=== PATIENT | male | born 1990 | race Caucasian/White ===

== ENCOUNTER 2016-07-08 11:48 | Emergency (ER) | payer BC, OTHER ==
[~2016-07-08] VITALS: Ht 182.9 cm; Wt 109.0 kg
[2016-07-08 12:01] VITALS: TEMP 37; Ht 182.9 cm; Wt 109.0 kg
[2016-07-08 14:25] LABS: BASO % 0.4 %; BASO ABS # 0.05 K/uL (0-0.2); COMPLETE YES; EOS % 2.1 %; HEMATOCRIT 45.1 % (42-52); IG% 0.2 %; LYMPH % 15.7 %; LYMPH ABS # 1.77 K/uL (1.2-3.4); MEAN CORPUSCULAR HEMOGLOBIN 30.8 pg (25-34); MEAN CORPUSCULAR HGB CONC 34.6 g/dl (32-36); MEAN PLATELET VOLUME 9.4 fL (7.4-10.4); MONO % 5.9 %; NEUT % 75.7 %; PLATELET COUNT 243 K/uL (130-400); RED BLOOD COUNT 5.07 M/uL (4.7-6.1); WHITE BLOOD COUNT 11.27 K/uL (4.8-10.8)
--- NOTE | 2016-07-08 14:31 | DIAGNOSTIC IMAGING REPORT ---
CT HEAD WITHOUT CONTRAST (CT) CLINICAL HISTORY: Change in neurological status with right-sided body numbness COMPARISON STUDY: No previous studies for comparison. TECHNIQUE: Axial CT of the brain is performed from the vertex to the skull base. IV contrast was not administered for this examination. CT DOSE: 537.48 mGy.cm FINDINGS: There is no midline shift. There is no acute hemorrhage. There are no calvarial fractures present. There is a subtle hypodensity involving the left medial frontal lobe. An MRI is recommended in follow-up. There is a small hypodensity within the right posterior subcortical right parietal lobe There is no evidence of pathologic ventricular dilatation. There is no evidence of acute sinusitis IMPRESSION: Subtle cortical hypodensity involving the left medial frontal lobe. An MRI without and with contrast is recommended in follow-up. Electronically signed by: Faizan Sanford M.D. 07/08/2016 2:29 PM
[2016-07-08 14:43] LABS: URINE APPEARANCE CLEAR (CLEAR); URINE BILIRUBIN NEG (NEG); URINE COLOR YELLOW; URINE NITRITE NEG (NEG); URINE PH 6.5 (4.5-7.5); URINE SPECIFIC GRAVITY 1.021 (1.000-1.030); UROBILINOGEN NEG (NEG)
[2016-07-08 14:47] LABS: CALCIUM 9.2 mg/dl (8.5-10.1); POTASSIUM 3.8 mmol/L (3.5-5.1)
[2016-07-08 14:50] LABS: MANUAL MICROSCOPIC REQUIRED? NO; REVIEW REQ? NO
[2016-07-08 15:01] LABS: BUN/CREATININE RATIO 11.1 (10-20); CALCIUM 9.3 mg/dl (8.5-10.1); CREATININE 1.1 mg/dl (0.60-1.40); MAGNESIUM 2.1 mg/dl (1.8-2.4); POTASSIUM 3.8 mmol/L (3.5-5.1)
[2016-07-08 15:13] LABS: C-REACTIVE PROTEIN 0.44 mg/dl (0-0.29); THYROID STIMULATING HORMONE 1.23 uIu/ml (0.300-4.500)
[2016-07-08 15:18] LABS: ALB/GLOB RATIO 1.2 (0.9-2)
[2016-07-08 15:39] LABS: LYME DISEASE AB IGG NEG (NEG); LYME DISEASE AB IGM NEG (NEG)
[2016-07-08] MEDS ORDERED: DIAZEPAM INJ 5 MG/ML 2 ML CARP IV STA ×2 (15:49→16:30)
[2016-07-08] MEDS ORDERED: NURSING VERBAL MED ORDER ONE (16:45)
[2016-07-08] MEDS ORDERED: GADAVIST IV PRN (16:45)
--- NOTE | 2016-07-08 16:57 | DIAGNOSTIC IMAGING REPORT ---
MRI OF THE BRAIN WITHOUT AND WITH IV CONTRAST CLINICAL HISTORY: ABNORMAL HEAD CT change in mental status COMPARISON STUDY: CT same date TECHNIQUE: Utilizing a 1.5 Marlen magnet and dedicated coil, multiplanar, multiecho imaging of the brain was performed pre and postcontrast administration. IV administration of 8.5 mL of Gadavist contrast was uneventful. FINDINGS: 1. Small focus of slightly increased signal left frontal parasagittal region. This shows a localized degree of mass effect with slight impact upon the left anterior aspect anterior horn left lateral ventricle. There is evidence for post contrast enhancement centrally measuring 1 cm. No additional foci of enhancement are present. Coronal FLAIR images show nonenhancing focus of increased signal left anterior frontal lobe. Several small foci of increased signal are identified in several hemispheres bilaterally. These primarily are subcortical in location. There is a small focus of increased signal left central nehemias. Foci of small increase in signal are identified in the optic radiations bilaterally. There is no deviation of midline structures. IMPRESSION: 1. Several foci of increased signal in the periventricular and deep white matter regions as well as the left central pontine region. 2. Larger focus of increased signal left parasagittal region left frontal lobe showing moderate central postcontrast enhancement measuring 1 cm. 3. Given patient's age and symptoms, this appearance is highly suggestive of a demyelinating disorder and/or multiple sclerosis, with the left parasagittal enhancing focus most likely an active focus of demyelination. 4. Other etiologies are considerably less likely Electronically signed by: Michael Ya M.D. 07/08/2016 4:56 PM
--- NOTE | 2016-07-08 17:39 | EMERGENCY ROOM VISIT NOTE ---
History First contact with patient: 12:49 Chief Complaint: NEURO SYMPTOMS Stated Complaint: NUMBNESS ON RIGHT SIDE OF BODY Nursing Triage Summary: Triage note: pt ambulatory to triage. pt reports "basically everything on the right side of my body has been numb since wednesday morning." pt states "this happend before and it took about a week for it to go away." History of Present Illness Patient is otherwise healthy 25-year-old white male who presents to the emergency department accompanied by his fiance and mother for evaluation of neurologic symptoms 4 days. He states his symptoms started when he woke up on Wednesday. He describes feeling "numbness and tingling" in the entire right side of his body. When asked to characterize this in the little bit more detail. He states that his sensation is dulled. His hand and his toes feel cold. He states that his scalp is actually spared, it starts from the right ear, includes down into the face and neck, then the right arm, torso and leg. He denies any weakness. He did report a slight headache and feeling a little bit lightheaded and nauseous on the day of the onset of his symptoms, but otherwise those have resolved. He denies any vomiting, no vision changes. No difficulty swallowing or chewing, no difficulty breathing. No neck pain, no posterior neck stiffness. No fever, chills or recent upper respiratory illness. No head injuries or trauma to the neck. He denies any low back pain. He denies any bowel or bladder incontinence. He has not received any vaccinations recently and is not on any medications. He denies any rashes, insect or tick bites. He has done nothing for his symptoms. He does report that he had a similar episode about 7 or 8 years ago, when his "whole body was numb." It resolved after about a week. He did not seek medical attention at that time had she did not have insurance. Review of Systems Review of systems as per HPI. All other systems reviewed were negative. 10 systems reviewed. Past Medical/Surgical History Medical Problems: (1) No Known Active Medical Problems Electronic medical records are reviewed and summarized as above/below. See Problem List. Social History Smoking Status: Never Smoker Smokeless Tobacco Use: Yes Alcohol Use: occasionally Marital Status: in relationship Housing Status: lives with family Occupation Status: employed Current/Historical Medications No Active Prescriptions or Reported Meds Allergies Uncoded Allergies: NKA (Allergy, Unknown, 08/17/02) Physical Exam Vital Signs Date Time Temp Pulse Resp B/P Pulse Ox O2 Delivery O2 Flow Rate FiO2 07/08/16 17:45 80 20 145/75 98 Room Air 07/08/16 15:49 71 18 143/89 98 Room Air 07/08/16 14:00 74 16 144/89 100 Room Air 07/08/16 12:01 37.0 80 18 149/102 98 Room Air Physical Exam CONSTITUTIONAL: Patient is a pleasant, well-appearing 25-year-old female who is awake and alert and laying semiupright on the gurney in no acute distress. Family members at the bedside. EYES: Pupils equal, round, reactive to light and accommodation. EOMs intact without nystagmus. Sclera are anicteric. ENT: Tympanic membranes intact, with normal landmarks. External canals are clear. Oral and nasopharynx are clear. Mucous membranes are moist, no lesions , tongue and gums appear normal. NECK: No bruits auscultated. Supple without lymphadenopathy. No thyromegaly. No meningeal signs. Full active range of motion without discomfort. CARDIOVASCULAR: Regular rate and rhythm, with normal S1 and S2, no murmur or gallop or rub is heard. No carotid bruits auscultated. No JVD. Peripheral pulses easy to palpable. RESPIRATORY: Breath sounds equal and clear to auscultation without wheezes, rales, or rhonchi heard. Full and equal chest expansion without accessory muscle use or retractions. GI: Bowel sounds are present. Abdomen is soft, nontender, nondistended. No organomegaly. No pulsatile masses. No guarding or rebound. MUSCULOSKELETAL: Full range of motion of extremities x 4 with good strength. No cyanosis, edema, joint tenderness or swelling. No deformity. INTEGUMENTARY: No lesions or rash, normal skin turgor. NEUROLOGICAL: Alert, oriented, and cooperative. Speech is clear and fluent with appropriate repetition, comprehensive and naming. Mini-Mental status exam is unremarkable. Cranial nerves 2 through 12 are grossly intact. Normal gait. Negative Romberg and pronator drift. Patient is able to toe, heel and tandem walk without difficulty. Finger to nose testing is within normal limits. Reflexes are 2+ and symmetrical in the biceps, triceps, brachial radialis, knees and ankles. Babinski's is downgoing. Sensation to light touch, pinprick and position sense are intact over the arms, torso and legs. Rapid alternating movements are intact. Strength is full bilaterally. LYMPH: No lymphadenopathy. Medical Decision & Procedures ER Provider Diagnostic Interpretation: CT HEAD WITHOUT CONTRAST (CT) CLINICAL HISTORY: Change in neurological status with right-sided body numbness COMPARISON STUDY: No previous studies for comparison. TECHNIQUE: Axial CT of the brain is performed from the vertex to the skull base. IV contrast was not administered for this examination. CT DOSE: 537.48 mGy.cm FINDINGS: There is no midline shift. There is no acute hemorrhage. There are no calvarial fractures present. There is a subtle hypodensity involving the left medial frontal lobe. An MRI is recommended in follow-up. There is a small hypodensity within the right posterior subcortical right parietal lobe There is no evidence of pathologic ventricular dilatation. There is no evidence of acute sinusitis IMPRESSION: Subtle cortical hypodensity involving the left medial frontal lobe. An MRI without and with contrast is recommended in follow-up. MRI OF THE BRAIN WITHOUT AND WITH IV CONTRAST CLINICAL HISTORY: ABNORMAL HEAD CT change in mental status COMPARISON STUDY: CT same date TECHNIQUE: Utilizing a 1.5 Marlen magnet and dedicated coil, multiplanar, multiecho imaging of the brain was performed pre and postcontrast administration. IV administration of 8.5 mL of Gadavist contrast was uneventful. FINDINGS: 1. Small focus of slightly increased signal left frontal parasagittal region. This shows a localized degree of mass effect with slight impact upon the left anterior aspect anterior horn left lateral ventricle. There is evidence for post contrast enhancement centrally measuring 1 cm. No additional foci of enhancement are present. Coronal FLAIR images show nonenhancing focus of increased signal left anterior frontal lobe. Several small foci of increased signal are identified in several hemispheres bilaterally. These primarily are subcortical in location. There is a small focus of increased signal left central nehemias. Foci of small increase in signal are identified in the optic radiations bilaterally. There is no deviation of midline structures. IMPRESSION: 1. Several foci of increased signal in the periventricular and deep white matter regions as well as the left central pontine region. 2. Larger focus of increased signal left parasagittal region left frontal lobe showing moderate central postcontrast enhancement measuring 1 cm. 3. Given patient's age and symptoms, this appearance is highly suggestive of a demyelinating disorder and/or multiple sclerosis, with the left parasagittal enhancing focus most likely an active focus of demyelination. 4. Other etiologies are considerably less likely Laboratory Results 07/08/16 14:05 Red Blood Count 5.07, Mean Corpuscular Volume 89.0, Mean Corpuscular Hemoglobin 30.8, Mean Corpuscular Hemoglobin Concent 34.6, Mean Platelet Volume 9.4, Neutrophils (%) (Auto) 75.7, Lymphocytes (%) (Auto) 15.7, Monocytes (%) (Auto) 5.9, Eosinophils (%) (Auto) 2.1, Basophils (%) (Auto) 0.4, Neutrophils # (Auto) 8.52, Lymphocytes # (Auto) 1.77, Monocytes # (Auto) 0.67, Eosinophils # (Auto) 0.24, Basophils # (Auto) 0.05 07/08/16 14:05 Test 07/08/16 14:05 White Blood Count 11.27 K/uL (4.8-10.8) Red Blood Count 5.07 M/uL (4.7-6.1) Hemoglobin 15.6 g/dL (14.0-18.0) Hematocrit 45.1 % (42-52) Mean Corpuscular Volume 89.0 fL (80-100) Mean Corpuscular Hemoglobin 30.8 pg (25-34) Mean Corpuscular Hemoglobin Concent 34.6 g/dl (32-36) Platelet Count 243 K/uL (130-400) Mean Platelet Volume 9.4 fL (7.4-10.4) Neutrophils (%) (Auto) 75.7 % Lymphocytes (%) (Auto) 15.7 % Monocytes (%) (Auto) 5.9 % Eosinophils (%) (Auto) 2.1 % Basophils (%) (Auto) 0.4 % Neutrophils # (Auto) 8.52 K/uL (1.4-6.5) Lymphocytes # (Auto) 1.77 K/uL (1.2-3.4) Monocytes # (Auto) 0.67 K/uL (0.11-0.59) Eosinophils # (Auto) 0.24 K/uL (0-0.5) Basophils # (Auto) 0.05 K/uL (0-0.2) RDW Standard Deviation 41.5 fL (36.4-46.3) RDW Coefficient of Variation 12.9 % (11.5-14.5) Immature Granulocyte % (Auto) 0.2 % Immature Granulocyte # (Auto) 0.02 K/uL (0.00-0.02) Erythrocyte Sedimentation Rate 12 mm/hr (0-14) Urine Color YELLOW Urine Appearance CLEAR (CLEAR) Urine pH 6.5 (4.5-7.5) Urine Specific [place] 1.021 (1.000-1.030) Urine Protein NEG (NEG) Urine Glucose (UA) NEG (NEG) Urine Ketones NEG (NEG) Urine Occult Blood NEG (NEG) Urine Nitrite NEG (NEG) Urine Bilirubin NEG (NEG) Urine Urobilinogen NEG (NEG) Urine Leukocyte Esterase NEG (NEG) Anion Gap 10.0 mmol/L (3-11) Est Creatinine Clear Calc Drug Dose 130.9 ml/min Estimated GFR () 107.6 Estimated GFR (Non- 92.8 BUN/Creatinine Ratio 11.1 (10-20) Calcium Level 9.3 mg/dl (8.5-10.1) Magnesium Level 2.1 mg/dl (1.8-2.4) Total Bilirubin 0.8 mg/dl (0.2-1) Aspartate Amino Transf (AST/SGOT) 14 U/L (15-37) Alanine Aminotransferase (ALT/SGPT) 39 U/L (12-78) Alkaline Phosphatase 72 U/L (45-117) C-Reactive Protein 0.44 mg/dl (0-0.29) Total Protein 7.8 gm/dl (6.4-8.2) Albumin 4.2 gm/dl (3.4-5.0) Globulin 3.6 gm/dl (2.5-4.0) Albumin/Globulin Ratio 1.2 (0.9-2) Thyroid Stimulating Hormone (TSH) 1.230 uIu/ml (0.300-4.500) Lyme Disease IgG Antibody NEG (NEG) Lyme Disease IgM Antibody NEG (NEG) ED Course The patient was seen and assessed as above. His old records were reviewed. IV access was obtained and laboratory studies were collected. He presents to the emergency department complaining of paresthesias in the right side of his body. He does not have any neurologic deficits on exam, nonetheless. Laboratory studies were ordered including CBC with differential, ESR, CRP, BMP, magnesium level, TSH, CMP and a Lyme screen. Due to the neurologic deficits, head CT was ordered. Laboratory studies revealed a white count of 11,200, H&H is normal. Sedimentation rate is not elevated. Electrolytes are without abnormality. CRP is minimally elevated. TSH is indicative of a euthyroid state. Urinalysis is clear. Lyme screen is negative. Head CT did demonstrate a subtle cortical hypodensity involving the left medial frontal lobe, and recommended an MRI with and without contrast for follow-up. MRI was pursued. Findings were consistent with several areas of increased signal uptake, that are concerning for a demyelinating disorder. All laboratory and diagnostic imaging studies were reviewed with attending physician. I did discuss the patient with [facility], Dr. Mathias, who will make arrangements for the patient to be seen in her office for follow- up. There were no acute intervention was necessary through the emergency department. All laboratory and diagnostic imaging studies were reviewed with the patient and his family at length. The patient was discharged home in good condition, and instructed to follow-up with Dr. Mathias as arranged. Differential diagnoses include CVA/TIA, acute intracranial bleed, mass or mass effect, malignancy, demyelinating disorder, meningitis, encephalitis, peripheral neuropathy, among others. Impression Primary Impression: Paresthesia of right upper and lower extremity Additional Impression: Demyelinating disorder Departure Information Prescriptions No Active Prescriptions or Reported Meds Referrals Liudmila Cheng D.O. (PCP) Stephanie Mathias M.D. Patient Instructions A Signature Page, My [facility] Additional Instructions [facility] neurology (Dr. Mathias et al) will contact you for a follow-up appointment. Continue current medications. Return to the ER for passing out, headaches, vision problems, fevers, vomiting, difficulty breathing or swallowing, severe pain, loss of control of your bowels or bladder, inability to walk, worsening of your condition, or as needed.
[2016-07-08 17:45] VITALS: BP 145/75; PULSE 80; O2SAT 98
[2017-03-15] MEDS ORDERED: DOXY100C76 PO (08:57)
[2017-03-15] MEDS ORDERED: PRED20TA PO (08:57)
[2017-03-15] MEDS ORDERED: ACET-1256 PO (08:58)
== END 2016-07-08 18:00 | disposition home or self-care (01) ==
LOC: C.EDB 11:50 → C.EDC 18:00
DX: R20.2 Paresthesia of skin (principal); G37.9 Demyelinating disease of central nervous system, unspecified; Z72.0 Tobacco use

== ENCOUNTER → 2016-08-10 | Outpatient (CLI) | payer BC ==
[~2016-08-10] MED LIST: ACET-1256 PO; CHOL1000 PO; CYAN10005 PO; DOXY100C76 PO; GADAVIST IV PRN; INTE1KIT5 SQ; MECL1TAB42 PO; OXYC-57 PO; PRED20TA PO
--- NOTE | 2016-08-10 10:51 | DIAGNOSTIC IMAGING REPORT ---
CERVICAL SPINE MRI WITH AND WITHOUT CONTRAST HISTORY: Demyelinating disorder DEMYELINATION TECHNIQUE: Multiplanar multisequence MRI of the cervical spine was performed both before and after the use of intravenous contrast. COMPARISON STUDY: None. FINDINGS: Signal characteristics the vertebral bodies as well as intervertebral discs are unremarkable. Signal characteristics cervical cord are unremarkable. Compromised evaluation of cord matrix due to patient motion. Focus of increased signal left central nehemias C2-C3: No significant central canal or neural foraminal narrowing. C3-C4: No significant central canal or neural foraminal narrowing. C4-C5: No significant central canal or neural foraminal narrowing. C5-C6: No significant central canal or neural foraminal narrowing. C6-C7: No significant central canal or neural foraminal narrowing. C7-T1: No significant central canal or neural foraminal narrowing. IMPRESSION: Negative study. Moderate compromise of the evaluation of the internal matrix of the cervical cord due to patient motion and [resolution. Focus of increased signal left central nehemias unchanged from the patient's prior MRI of the brain Electronically signed by: Michael Ya M.D. 08/10/2016 10:50 AM Dictated Date/Time: 08/10/2016 10:44 AM
== END | disposition home or self-care (01) ==
LOC: C.OPENMRI 08:46
PROVIDERS: ATTEND Psychiatry & Neurology Neurology
DX: G36.9 Acute disseminated demyelination, unspecified (principal)

== ENCOUNTER → 2016-10-07 | Outpatient (CLI) | payer BC ==
--- NOTE | 2016-10-07 09:11 | DIAGNOSTIC IMAGING REPORT ---
MRI OF THE BRAIN WITHOUT AND WITH IV CONTRAST CLINICAL HISTORY: Multiple sclerosis COMPARISON STUDY: 07/08/2016 TECHNIQUE: MRI of the brain was performed from the vertex to the skull base utilizing various T1 and T2 weighted sequences. Following the IV administration of 12.5 mL of Gadavist contrast, additional enhanced images were obtained. The patient was imaged under 0.7 Marlen open MRI scanner. FINDINGS: Sagittal T1, axial diffusion, proton density and T2 weighted axial, coronal FLAIR, and pre and post axial T1-weighted images were acquired. These were supplemented with post gadolinium coronal T1 weighted images. No intra or extra-axial mass lesions are visualized. Foci of increased signal on diffusion-weighted imaging, likely represents T2 shine through. There is no evidence of ventricular dilatation. Proton density T2-weighted and FLAIR images reveal multiple new white matter lesions. There is a 12 mm focus of increased signal within the central nehemias. There are foci of increased signal within the left cerebellar peduncle. There is a new focus of increased signal within the right optic radiations. There is a new 12 mm lesion within the white matter adjacent to the atrium of the right lateral ventricle. There is a new 9 mm lesion within the right internal capsule. There is a new lesion within the right frontal white matter. The previous identified left frontal white matter lesion appears smaller. There are small foci of enhancement within the nehemias. There are ring-enhancing lesions adjacent to the atrium of the right lateral ventricle and within the right frontal white matter. There is a punctate focus of enhancement adjacent to the atrium of the left lateral ventricle. The lesion within the right internal capsule enhances. There are no abnormal flow voids. IMPRESSION: 1. Changing pattern of the multiple white matter lesions. Overall there is been significant progression in the disease when compared the preceding study performed July 08, 2016. Multiple lesions demonstrate post gadolinium enhancement. The findings are most consistent with a demyelinating process such as multiple sclerosis with active enhancing plaques. Electronically signed by: Faizan Sanford M.D. 10/07/2016 9:10 AM Dictated Date/Time: 10/07/2016 9:02 AM
== END | disposition home or self-care (01) ==
LOC: C.OPENMRI 07:39
PROVIDERS: ATTEND Psychiatry & Neurology Neurology
DX: G35 Multiple sclerosis (principal)

== ENCOUNTER 2017-02-19 16:59 | Emergency (ER) | payer BC ==
[~2017-02-19] VITALS: Ht 182.9 cm; Wt 111.5 kg
[2017-02-19 17:04] VITALS: TEMP 37; Ht 182.9 cm; Wt 111.5 kg
--- NOTE | 2017-02-19 17:28 | EMERGENCY ROOM VISIT NOTE ---
History Report prepared by Adelia: Bibiana Mehta Under the Supervision of: Dr. Damián Sandy D.O. First contact with patient: 17:13 Chief Complaint: NEURO SYMPTOMS Stated Complaint: NUMBNESS IN FACE AND CAN'T WALK History of Present Illness The patient is a 26 year old male who presents to the Emergency Room with complaints of numbness on the right side of his body today. He states that he is walking with a little bit of a stagger due to the numbness. He also reports having double vision. The patient denies having a fever, nausea, and vomiting. He reports loss of appetite over the last few days. The patient reports last taking steroids 2 days ago, and that when he stopped taking the steroids, the symptoms returned. He reports that his neurologist, Dr. Campos, told him to take Tylenol and that his symptoms should go away. The patient states that he got his multiple sclerosis shot yesterday. Source of History: patient Onset: today Position: other (right side of body) Quality: numbness Associated Symptoms: No fevers, No nausea, No vomiting Note: additional symptom: double vision, walking with a stagger, loss of appetite Review of Systems See HPI for pertinent positives & negatives. A total of 10 systems reviewed and were otherwise negative. Past Medical & Surgical Medical Problems: (1) No Known Active Medical Problems Family History Diabetes mellitus Hypertension Social History Smoking Status: Never Smoker Alcohol Use: occasionally Marital Status: in relationship Housing Status: lives with family Occupation Status: employed Current/Historical Medications Scheduled Cholecalciferol (Vitamin D3), 1,000 INTER.UNIT PO DAILY Cyanocobalamin (Vitamin B-12), 1,000 MCG PO DAILY Interferon Beta-1A (Avonex Pen), 0.5 ML SQ WK Scheduled PRN Meclizine Hcl (Meclizine Hcl), 25 MG PO TID PRN for Dizziness or Vertigo Allergies Coded Allergies: No Known Allergies (Unverified , 02/19/17) Physical Exam Vital Signs Date Time Temp Pulse Resp B/P (MAP) Pulse Ox O2 Delivery O2 Flow Rate FiO2 02/19/17 18:18 82 16 133/93 96 02/19/17 17:24 83 02/19/17 17:23 Room Air 02/19/17 17:04 37.0 91 18 137/91 95 Room Air Physical Exam GENERAL: Patient is awake, alert, and in no acute distress. Patient is resting comfortably and showing no signs of anxiety EYES: The conjunctivae are clear. The pupils are round and reactive. EARS, NOSE, MOUTH AND THROAT: The nose is without any evidence of any deformity. Mucous membranes are moist tongue is midline NECK: The neck is nontender and supple. RESPIRATORY: Normal respiratory effort is noted there is no evidence of wheezing rhonchi or rales CARDIOVASCULAR: Regular rate and rhythm noted there no murmurs rubs or gallops normal S1 normal S2 GASTROINTESTINAL: The abdomen is soft. Bowel sounds are present in all quadrants. Abdomen is nontender MUSCULOSKELETAL/EXTREMITIES: There is no evidence of gross deformity full range of motion is noted in the hips and shoulders SKIN: There is no obvious evidence of any rash. There are no petechiae, pallor or cyanosis noted. NEUROLOGIC: Patient is awake alert and oriented x3, ostomy nurse strength was diminished in right upper extremity compared to left minimally. patellar reflexes are 3+ bilaterally Medical Decision & Procedures ER Provider Diagnostic Interpretation: X-ray results as stated below per interpretation by me and the radiologist. CHEST ONE VIEW PORTABLE CLINICAL HISTORY: 26 years-old Male presenting with EVALUATE ALTERED MENTAL STATUS/WEAKNESS. TECHNIQUE: Portable upright AP view of the chest was obtained. COMPARISON: None. FINDINGS: Cardiomediastinal silhouette normal. Lungs and pleural spaces clear. Osseous structures normal. Upper abdomen normal. IMPRESSION: 1. No acute cardiopulmonary disease. Electronically signed by: Cristhian Wood M.D. 02/19/2017 6:12 PM Dictated Date/Time: 02/19/2017 6:11 PM Laboratory Results 02/19/17 17:32 Red Blood Count 5.42, Mean Corpuscular Volume 89.5, Mean Corpuscular Hemoglobin 30.1, Mean Corpuscular Hemoglobin Concent 33.6, Mean Platelet Volume 9.2, Neutrophils (%) (Auto) 65.2, Lymphocytes (%) (Auto) 21.3, Monocytes (%) (Auto) 10.9, Eosinophils (%) (Auto) 1.4, Basophils (%) (Auto) 0.3, Neutrophils # (Auto ) 7.66, Lymphocytes # (Auto) 2.51, Monocytes # (Auto) 1.28, Eosinophils # (Auto ) 0.17, Basophils # (Auto) 0.03 02/19/17 17:32 Test 8/18/17 17:32 White Blood Count 11.76 K/uL (4.8-10.8) Red Blood Count 5.42 M/uL (4.7-6.1) Hemoglobin 16.3 g/dL (14.0-18.0) Hematocrit 48.5 % (42-52) Mean Corpuscular Volume 89.5 fL (80-100) Mean Corpuscular Hemoglobin 30.1 pg (25-34) Mean Corpuscular Hemoglobin Concent 33.6 g/dl (32-36) Platelet Count 275 K/uL (130-400) Mean Platelet Volume 9.2 fL (7.4-10.4) Neutrophils (%) (Auto) 65.2 % Lymphocytes (%) (Auto) 21.3 % Monocytes (%) (Auto) 10.9 % Eosinophils (%) (Auto) 1.4 % Basophils (%) (Auto) 0.3 % Neutrophils # (Auto) 7.66 K/uL (1.4-6.5) Lymphocytes # (Auto) 2.51 K/uL (1.2-3.4) Monocytes # (Auto) 1.28 K/uL (0.11-0.59) Eosinophils # (Auto) 0.17 K/uL (0-0.5) Basophils # (Auto) 0.03 K/uL (0-0.2) RDW Standard Deviation 43.1 fL (36.4-46.3) RDW Coefficient of Variation 13.2 % (11.5-14.5) Immature Granulocyte % (Auto) 0.9 % Immature Granulocyte # (Auto) 0.11 K/uL (0.00-0.02) Prothrombin Time 11.4 SECONDS (9.0-12.0) Prothromb Time International Ratio 1.1 (0.9-1.1) Activated Partial Thromboplast Time 26.3 SECONDS (21.0-31.0) Partial Thromboplastin Ratio 1.0 Anion Gap 6.0 mmol/L (3-11) Est Creatinine Clear Calc Drug Dose 147.3 ml/min Estimated GFR () 122.8 Estimated GFR (Non- 106.0 BUN/Creatinine Ratio 11.6 (10-20) Calcium Level 9.1 mg/dl (8.5-10.1) Magnesium Level 2.1 mg/dl (1.8-2.4) Total Bilirubin 1.4 mg/dl (0.2-1) Direct Bilirubin 0.3 mg/dl (0-0.2) Aspartate Amino Transf (AST/SGOT) 17 U/L (15-37) Alanine Aminotransferase (ALT/SGPT) 57 U/L (12-78) Alkaline Phosphatase 55 U/L (45-117) Total Creatine Kinase 92 U/L (39-308) Creatine Kinase MB < 0.5 ng/ml (0.5-3.6) Creatine Kinase MB Ratio (0-3.0) Troponin I < 0.015 ng/ml (0-0.045) Total Protein 7.7 gm/dl (6.4-8.2) Albumin 3.9 gm/dl (3.4-5.0) Thyroid Stimulating Hormone (TSH) 1.420 uIu/ml (0.300-4.500) Laboratory results per my review. Medications Administered Medications (Trade) Dose Ordered Sig/Andrey Route Start Time Stop Time Status Last Admin Dose Admin Pantoprazole Sodium (Protonix Tab) 40 mg NOW STAT PO 02/19/17 17:29 02/19/17 17:30 DC 02/19/17 18:13 40 MG Al Hydrox/Mg Hydrox/Simethicone (Maalox Max Susp) 30 ml NOW STAT PO 02/19/17 17:29 02/19/17 17:30 DC 02/19/17 18:13 30 ML Methylprednisolone Sodium Succinate 1000 mg/Sodium Chloride 266 ml @ 266 mls/hr TODAY@1745 IV 02/19/17 17:45 02/19/17 20:00 02/19/17 18:16 266 MLS/HR ECG Indication: weakness Rate (beats per minute): 77 Rhythm: normal sinus Findings: no ectopy, other (no acute ST segment abnormalities) ED Course 1720: The patient was evaluated in room C5. A complete history and physical examination were performed. 1729: Ordered Al Hydrox/Mg Hydrox/Simethicone 30 ml PO, Pantoprazole Sodium 40 mg PO. 1733: I spoke to Dr. Mathias of [facility], and she recommends 1 gm of Solu- Medrol for 3 days and no MRI at this time. The patient should follow up with her. 1745: Ordered Methylprednisolone Sodium Succinate 1,000 mg/Sodium Chloride 266 ml @ 266 mls/hr IV. 1748: I discussed the patient's case with Laurie Villalobos PA-C so she can order the outpatient Solu-Medrol. 190: Upon reevaluation, the patient is resting. I discussed the results and treatment plan with him. He verbalized agreement of the treatment plan. He was discharged home. Medical Decision Differential diagnosis: Etiologies such as metabolic, infection, hypo/hyperglycemia, electrolyte abnormalities, cardiac sources, intracerebral event, toxicologic, neurologic, as well as others were entertained. Nursing notes reviewed. The patient's previous electronic medical records reviewed including his most recent MRIs. The patient is a 26-year-old male who presented to the emergency department for an evaluation of right sided neurologic symptoms. The patient has a history of MS. A review of his recent MRIs that show he has a very progressive disease process. He recently stopped a course of steroids and feels that his symptoms have rebounded since then. I discussed the patient's condition with his primary neurologist. She has requested a dose of Solu-Medrol at this time and asked me to try to set up doses through the weekend and she would follow him up next week. The patient was encouraged to return for the doses of Solu-Medrol return to the emergency department immediately if symptoms change worsen or the need arises. Otherwise she was encouraged to follow-up with his primary care physician as well as primary neurologist. Medication Reconcilliation Current Medication List: was personally reviewed by me Blood Pressure Screening Patient's blood pressure: Normal blood pressure Consults Time Called: 1729 Consulting Physician: Dr. Mey Shah Neurology Returned Call: [address] Mathias of [facility], and she recommends 1 gm of Solu-Medrol for 3 days and no MRI at this time. The patient should follow up with her. Additional Consults: Time Called: 174 Consulted Physician: Laurie Villalobos PA-C Returned Call: 174 Additional Comments: I discussed the patient's case with Laurie Villalobos PA-C so she can order the outpatient Solu-Medrol. Impression Primary Impression: Multiple sclerosis exacerbation Scribe Attestation The scribe's documentation has been prepared under my direction and personally reviewed by me in its entirety. I confirm that the note above accurately reflects all work, treatment, procedures, and medical decision making performed by me. Departure Information Dispostion Home / Self-Care Referrals No Doctor, Assigned (PCP) Liudmila Cheng D.O. Schaefer, Kathleen A., M.D. Forms HOME CARE DOCUMENTATION FORM, IMPORTANT VISIT INFORMATION, WORK / SCHOOL INSTRUCTIONS Patient Instructions Multiple Sclerosis, My [facility] Additional Instructions Return to the hospital at 9 a.m. tomorrow for a re-dosage of the Solu-Medrol. Return on Wednesday as well. Call to schedule a follow-up appointment with your primary neurologist for Wednesday or Wednesday. If you cannot get an appointment by Wednesday return on Wednesday morning as well for another dose of Solu-Medrol. Rest and avoid any strenuous activity. Continue all medications as prescribed.
[2017-02-19] MEDS ORDERED: PANTOprazole SOD 40 MG TAB PO STA (17:29)
[2017-02-19] MEDS ORDERED: ALUMINUM/MAGNESIUM/SIMETH (MAALOX MAX) 30 ML UDC PO STA (17:29)
[2017-02-19] MEDS ORDERED: METHYLPREDNISOLONE 1000 MG/16 ML IV STA (17:29)
[2017-02-19] MEDS ORDERED: CYAN10005 PO (17:43)
[2017-02-19] MEDS ORDERED: MECL1TAB42 PO (17:43)
[2017-02-19] MEDS ORDERED: CHOL1000 PO (17:43)
[2017-02-19] MEDS ORDERED: INTE1KIT5 SQ (17:43)
[2017-02-19] MEDS ORDERED: METHYLPREDNISOLONE IV SCH (17:45)
[2017-02-19] MEDS ORDERED: SODIUM CHLORIDE 0.9% IV SCH (17:45)
[2017-02-19 17:55] LABS: BASO % 0.3 %; BASO ABS # 0.03 K/uL (0-0.2); COMPLETE YES; EOS % 1.4 %; HEMATOCRIT 48.5 % (42-52); IG% 0.9 %; LYMPH % 21.3 %; LYMPH ABS # 2.51 K/uL (1.2-3.4); MEAN CELL VOLUME 89.5 fL (80-100); MEAN CORPUSCULAR HEMOGLOBIN 30.1 pg (25-34); MEAN CORPUSCULAR HGB CONC 33.6 g/dl (32-36); MEAN PLATELET VOLUME 9.2 fL (7.4-10.4); MONO % 10.9 %; NEUT % 65.2 %; PLATELET COUNT 275 K/uL (130-400); RED BLOOD COUNT 5.42 M/uL (4.7-6.1); WHITE BLOOD COUNT 11.76 K/uL (4.8-10.8)
[2017-02-19 18:05] LABS: INR 1.1 (0.9-1.1); PROTHROMBIN TIME (PATIENT) 11.4 SECONDS (9.0-12.0)
--- NOTE | 2017-02-19 18:13 | DIAGNOSTIC IMAGING REPORT ---
CHEST ONE VIEW PORTABLE CLINICAL HISTORY: 26 years-old Male presenting with EVALUATE ALTERED MENTAL STATUS/WEAKNESS. TECHNIQUE: Portable upright AP view of the chest was obtained. COMPARISON: None. FINDINGS: Cardiomediastinal silhouette normal. Lungs and pleural spaces clear. Osseous structures normal. Upper abdomen normal. IMPRESSION: 1. No acute cardiopulmonary disease. Electronically signed by: Cristhian Wood M.D. 02/19/2017 6:12 PM Dictated Date/Time: 02/19/2017 6:11 PM
[2017-02-19 18:35] LABS: ALT/SGPT 57 U/L (12-78); AST/SGOT 17 U/L (15-37); BLOOD UREA NITROGEN 11 mg/dl (7-18); BUN/CREATININE RATIO 11.6 (10-20); CALCIUM 9.1 mg/dl (8.5-10.1); CARBON DIOXIDE 28 mmol/L (21-32); CHLORIDE 105 mmol/L (98-107); CREATININE 0.98 mg/dl (0.60-1.40); GLUCOSE 89 mg/dl (70-99); MAGNESIUM 2.1 mg/dl (1.8-2.4); POTASSIUM 3.4 mmol/L (3.5-5.1); SODIUM 139 mmol/L (136-145)
[2017-02-19 18:46] LABS: ALKALINE PHOSPHATASE 55 U/L (45-117)
[2017-02-19 19:35] VITALS: BP 139/83; PULSE 84; O2SAT 96
[2017-03-15] MEDS ORDERED: PRED20TA PO (08:57)
[2017-03-15] MEDS ORDERED: DOXY100C76 PO (08:57)
[2017-03-15] MEDS ORDERED: ACET-1256 PO (08:58)
== END 2017-02-19 19:35 | disposition home or self-care (01) ==
LOC: C.EDB 17:01 → C.EDC 19:35
DX: G35 Multiple sclerosis (principal); Z83.3 Family history of diabetes mellitus; Z82.49 Family history of ischemic heart disease and other diseases of the circulatory system

== ENCOUNTER → 2017-02-26 | Outpatient (CLI) | payer BC ==
[~2017-02-26] MED LIST changes: -GADAVIST IV PRN; +MAGNEVIST IV PRN
--- NOTE | 2017-02-26 13:57 | DIAGNOSTIC IMAGING REPORT ---
MRA OF THE INTRACRANIAL CIRCULATION WITHOUT CONTRAST CLINICAL HISTORY: Multiple sclerosis. Right sided numbness. COMPARISON STUDY: MRI of the brain October 07, 2016. TECHNIQUE: Utilizing a 1.5 Marlen magnet and 3-D [id number] technique, unenhanced MRA of the intracranial circulation was obtained. FINDINGS: The bilateral M1, M2, A1 and A2 segments are patent. This exam is mildly compromised by motion artifact but is diagnostic. No abrupt vessel cut off or intracranial aneurysm is identified on this examination. There is no for dissection within the major intracranial vessels. No significant stenosis is present. Posterior circulation is also intact. IMPRESSION: Unremarkable MRA of the intracranial circulation. Electronically signed by: Kenney Luke M.D. 02/26/2017 1:56 PM Dictated Date/Time: 02/26/2017 1:54 PM
--- NOTE | 2017-02-26 14:56 | DIAGNOSTIC IMAGING REPORT ---
Brain MRI WITH AND WITHOUT CONTRAST HISTORY: Multiple sclerosis. Right-sided body numbness. TECHNIQUE: Multiplanar multisequence MRI of the brain was performed both before and after the intravenous administration of contrast. COMPARISON STUDY: Brain MRI 10/07/2016. FINDINGS: No areas of restricted diffusion to suggest acute infarction. The midline structures are intact. Small retention cysts within the right maxillary sinus. The mastoid air cells are clear. The major vascular flow voids at the skull base are well-maintained. The ventricles and sulci are within normal limits. There again noted multiple scattered white matter plaques seen within the supratentorial and infratentorial brain consistent with the patient's history of multiple sclerosis. The right parietal and right basal ganglia plaques have decreased in size. There is a new 1 cm white matter plaque within the right thalamus. There are 2 new white matter plaques within the left frontal periventricular white matter with the largest measuring 8 mm. A 6 mm white matter plaque within the left parietal periventricular white matter has increased in size. Large white matter plaque within the nehemias is also slightly increased in size. This measures 1.6 cm, previously measuring 1.2 cm. No hematoma or midline shift. No abnormal enhancement this time. IMPRESSION: Overall, mixed findings compared to the prior study. The right parietal periventricular white matter plaques have improved. However, there has been increase in size within the large pontine and small left parietal white matter plaques. There are few new white matter plaques within the right thalamus and left frontal lobe. No abnormal enhancement this time. Electronically signed by: Berhane Tang M.D. 02/26/2017 2:55 PM Dictated Date/Time: 02/26/2017 2:45 PM
== END | disposition home or self-care (01) ==
LOC: C.MRIBC 12:03
PROVIDERS: ATTEND Psychiatry & Neurology Neurology
DX: G35 Multiple sclerosis (principal)

== ENCOUNTER 2017-03-19 10:18 | Emergency (ER) | payer BC ==
[~2017-03-19] VITALS: Ht 182.9 cm; Wt 112.9 kg
[~2017-03-19 10:18] MED LIST changes: -MAGNEVIST IV PRN; -OXYC-57 PO
[2017-03-19 10:22] VITALS: TEMP 36.6; Ht 182.9 cm; Wt 112.9 kg
[2017-03-19] MEDS ORDERED: SODIUM CHLORIDE 0.9% 1000ML 1,000 ML IV STA (10:43)
[2017-03-19] MEDS ORDERED: KETOROLAC TROMETHAMINE 30 MG/ML VIAL IV STA (10:43)
[2017-03-19] MEDS ORDERED: ONDANSETRON INJ 2 MG/ML 2 ML VIAL IV STA (10:43)
[2017-03-19 11:50] LABS: BASO % 0.1 %; BASO ABS # 0.02 K/uL (0-0.2); COMPLETE YES; EOS % 0.1 %; HEMATOCRIT 40.7 % (42-52); IG% 2.4 %; LYMPH % 6.2 %; MEAN CELL VOLUME 88.9 fL (80-100); MEAN CORPUSCULAR HEMOGLOBIN 30.1 pg (25-34); MEAN CORPUSCULAR HGB CONC 33.9 g/dl (32-36); MEAN PLATELET VOLUME 9.1 fL (7.4-10.4); MONO % 14.2 %; PLATELET COUNT 247 K/uL (130-400); RED BLOOD COUNT 4.58 M/uL (4.7-6.1); WHITE BLOOD COUNT 17.66 K/uL (4.8-10.8)
[2017-03-19 12:00] LABS: URINE APPEARANCE CLEAR (CLEAR); URINE BILIRUBIN NEG (NEG); URINE COLOR YELLOW; URINE EPITHELIAL CELL AUTO 20-30 /lpf (0-5); URINE NITRITE NEG (NEG); URINE PH 5.5 (4.5-7.5); URINE SPECIFIC GRAVITY 1.023 (1.000-1.030); UROBILINOGEN NEG (NEG); ZZUR CULT IF INDIC CLEAN CATCH NO
[2017-03-19 12:04] LABS: MANUAL MICROSCOPIC REQUIRED? NO; REVIEW REQ? NO
[2017-03-19 12:07] LABS: BUN/CREATININE RATIO 14.4 (10-20); CALCIUM 8.6 mg/dl (8.5-10.1); CREATININE 1.2 mg/dl (0.60-1.40); POTASSIUM 3.3 mmol/L (3.5-5.1)
--- NOTE | 2017-03-19 12:34 | DIAGNOSTIC IMAGING REPORT ---
ABDOMEN 2VIEW W/PA CHEST RTN CLINICAL HISTORY: ABDOMINAL PAIN/GI nausea COMPARISON STUDY: 02/19/2017 FINDINGS: The soft tissues, psoas shadows, renal outlines and intestinal gas pattern appear normal. There is no evidence for bowel obstruction. There is no evidence for free intraperitoneal air. No abnormal abdominal calcifications are seen. A frontal view of the chest was performed and is unremarkable. IMPRESSION: Normal study. The above report was generated using voice recognition software. It may contain grammatical, syntax or spelling errors. Electronically signed by: Michael Ya M.D. 03/19/2017 12:33 PM Dictated Date/Time: 03/19/2017 12:33 PM
[2017-03-19 13:07] VITALS: O2SAT 97
--- NOTE | 2017-03-19 13:14 | DIAGNOSTIC IMAGING REPORT ---
ABD/PELVIS WITHOUT FOR STONE CT DOSE: 1590.22 mGy.cm HISTORY: Flank pain left flank pain, lower abd pain TECHNIQUE: Multiaxial CT images of the abdomen and pelvis were performed without the use of intravenous and oral contrast according to the standard department stone protocol. A dose lowering technique was utilized adhering to the principles of ALARA. COMPARISON STUDY: None. FINDINGS: Lung bases are clear. Liver spleen and pancreas are unremarkable. Gallbladder is negative for distention. Right kidney is negative for hydronephrosis. Several punctate nonobstructing right renal calcifications. Mild left renal hydronephrosis and hydroureter. Obstructing calculus distal left ureter medially proximal to the left ureterovesical junction measuring 3 mm. Bladder is midline. Bowel pattern overall is nonobstructive. The appendix is normal. IMPRESSION: 1. 3 mm obstructing calculus distal left ureter slightly proximal to the left ureteral vesicle junction. 2. Mild left renal hydroureteronephrosis. The above report was generated using voice recognition software. It may contain grammatical, syntax or spelling errors. Electronically signed by: Michael Ya M.D. 03/19/2017 1:13 PM Dictated Date/Time: 03/19/2017 1:10 PM
[2017-03-19] MEDS ORDERED: OXYC-57 PO (13:35)
--- NOTE | 2017-03-19 13:47 | EMERGENCY ROOM VISIT NOTE ---
History Report prepared by Adelia: Ricky Day Under the Supervision of: Dr. Porfirio Sparks D.O. First contact with patient: 10:36 Chief Complaint: ABDOMINAL PAIN Stated Complaint: STOMACH PAIN, LOWER BACK PAIN, NAUSEA Nursing Triage Summary: pt c/o upper mid abd pain strated at 0500 this am and lower back pain more on left side. feels nauseated and vomited x3 today History of Present Illness The patient is a 26 year old male who presents to the Emergency Room with complaints of waxing and waning lower abdominal starting when he woke up this morning around 0500, and it has gotten slightly better. The patient additionally complains of back pain, nausea, and vomiting. The patient denies any diarrhea, urinary symptoms, fever, and cough. He states that he has never had anything like this in the past. The patient states that he has a history of MS, and he has never had any abdominal surgeries. The patient states that he is on doxycycline and a steroid taper for a rash which has resolved. Source of History: patient Onset: 0500 Position: abdomen Timing: waxes/wanes Associated Symptoms: + nausea, + vomiting, + back pain, No fevers, No cough , No diarrhea, No urinary symptoms Review of Systems See HPI for pertinent positives & negatives. A total of 10 systems reviewed and were otherwise negative. Past Medical & Surgical Medical Problems: (1) Multiple sclerosis Family History Diabetes mellitus Hypertension Social History Smoking Status: Never Smoker Alcohol Use: occasionally Marital Status: in relationship Housing Status: lives with family Occupation Status: employed Current/Historical Medications Scheduled Cholecalciferol (Vitamin D3), 1,000 INTER.UNIT PO DAILY Cyanocobalamin (Vitamin B-12), 1,000 MCG PO DAILY Doxycycline Monohydrate (Monodox), 100 MG PO BID Interferon Beta-1A (Avonex Pen), 0.5 ML SQ WK Prednisone (Prednisone), 20 MG PO DIRECTED Scheduled PRN Acetaminophen (Tylenol), 500 MG PO Q4 PRN for Headache Meclizine Hcl (Meclizine Hcl), 25 MG PO TID PRN for Dizziness or Vertigo Oxycodone/Acetaminophen 5MG/325MG (Percocet 5MG/325MG), 1 TAB PO Q6H PRN for Pain Allergies Coded Allergies: No Known Allergies (Unverified , 03/15/17) Physical Exam Vital Signs Date Time Temp Pulse Resp B/P (MAP) Pulse Ox O2 Delivery O2 Flow Rate FiO2 03/19/17 13:58 75 16 151/90 03/19/17 13:07 81 16 130/75 97 Room Air 03/19/17 11:55 71 16 184/104 98 Room Air 03/19/17 10:22 36.6 71 18 167/106 96 Room Air Physical Exam CONSTITUTIONAL/VITAL SIGNS: Reviewed / noted above. GENERAL: Non-toxic in appearance. INTEGUMENTARY: Warm, dry, and [place]. HEAD: Normocephalic. EYES: without scleral icterus or trauma. ENT/OROPHARYNX: clear and moist. LYMPHADENOPATHY/NECK: Is supple without lymphadenopathy or meningismus. RESPIRATORY: Lungs clear and equal. CARDIOVASCULAR: Regular rate and rhythm. GI/ABDOMEN: Lower abdominal tenderness. Soft. No organomegaly or pulsatile mass. No rebound or guarding. Normal bowel sounds. EXTREMITIES: Warm and well perfused. BACK: No CVA tenderness. NEUROLOGICAL: Intact without focal deficits. PSYCHIATRIC: normal affect. MUSCULOSKELETAL: Normally developed with good muscle tone. Medical Decision & Procedures ER Provider Diagnostic Interpretation: Radiology results as stated below per my review and radiologist interpretation: ABDOMEN 2VIEW W/PA CHEST RTN CLINICAL HISTORY: ABDOMINAL PAIN/GI nausea COMPARISON STUDY: 02/19/2017 FINDINGS: The soft tissues, psoas shadows, renal outlines and intestinal gas pattern appear normal. There is no evidence for bowel obstruction. There is no evidence for free intraperitoneal air. No abnormal abdominal calcifications are seen. A frontal view of the chest was performed and is unremarkable. IMPRESSION: Normal study. The above report was generated using voice recognition software. It may contain grammatical, syntax or spelling errors. Electronically signed by: Michael Ya M.D. 03/19/2017 12:33 PM Dictated Date/Time: 03/19/2017 12:33 PM ABD/PELVIS WITHOUT FOR STONE CT DOSE: 1590.22 mGy.cm HISTORY: Flank pain left flank pain, lower abd pain TECHNIQUE: Multiaxial CT images of the abdomen and pelvis were performed without the use of intravenous and oral contrast according to the standard department stone protocol. A dose lowering technique was utilized adhering to the principles of ALARA. COMPARISON STUDY: None. FINDINGS: Lung bases are clear. Liver spleen and pancreas are unremarkable. Gallbladder is negative for distention. Right kidney is negative for hydronephrosis. Several punctate nonobstructing right renal calcifications. Mild left renal hydronephrosis and hydroureter. Obstructing calculus distal left ureter medially proximal to the left ureterovesical junction measuring 3 mm. Bladder is midline. Bowel pattern overall is nonobstructive. The appendix is normal. IMPRESSION: 1. 3 mm obstructing calculus distal left ureter slightly proximal to the left ureteral vesicle junction. 2. Mild left renal hydroureteronephrosis. The above report was generated using voice recognition software. It may contain grammatical, syntax or spelling errors. Electronically signed by: Michael Ya M.D. 03/19/2017 1:13 PM Dictated Date/Time: 03/19/2017 1:10 PM Laboratory Results 03/19/17 11:34 Red Blood Count 4.58, Mean Corpuscular Volume 88.9, Mean Corpuscular Hemoglobin 30.1, Mean Corpuscular Hemoglobin Concent 33.9, Mean Platelet Volume 9.1, Neutrophils (%) (Auto) 77.0, Lymphocytes (%) (Auto) 6.2, Monocytes (%) (Auto) 14.2, Eosinophils (%) (Auto) 0.1, Basophils (%) (Auto) 0.1, Neutrophils # (Auto ) 13.59, Lymphocytes # (Auto) 1.10, Monocytes # (Auto) 2.51, Eosinophils # (Auto ) 0.01, Basophils # (Auto) 0.02 03/19/17 11:34 Test 03/19/17 10:50 03/19/17 11:34 Urine Color YELLOW Urine Appearance CLEAR (CLEAR) Urine pH 5.5 (4.5-7.5) Urine Specific [place] 1.023 (1.000-1.030) Urine Protein NEG (NEG) Urine Glucose (UA) NEG (NEG) Urine Ketones NEG (NEG) Urine Occult Blood 3+ (NEG) Urine Nitrite NEG (NEG) Urine Bilirubin NEG (NEG) Urine Urobilinogen NEG (NEG) Urine Leukocyte Esterase NEG (NEG) Urine WBC (Auto) 1-5 /hpf (0-5) Urine RBC (Auto) >30 /hpf (0-4) Urine Hyaline Casts (Auto) 1-5 /lpf (0-5) Urine Epithelial Cells (Auto) 20-30 /lpf (0-5) Urine Bacteria (Auto) NEG (NEG) White Blood Count 17.66 K/uL (4.8-10.8) Red Blood Count 4.58 M/uL (4.7-6.1) Hemoglobin 13.8 g/dL (14.0-18.0) Hematocrit 40.7 % (42-52) Mean Corpuscular Volume 88.9 fL (80-100) Mean Corpuscular Hemoglobin 30.1 pg (25-34) Mean Corpuscular Hemoglobin Concent 33.9 g/dl (32-36) Platelet Count 247 K/uL (130-400) Mean Platelet Volume 9.1 fL (7.4-10.4) Neutrophils (%) (Auto) 77.0 % Lymphocytes (%) (Auto) 6.2 % Monocytes (%) (Auto) 14.2 % Eosinophils (%) (Auto) 0.1 % Basophils (%) (Auto) 0.1 % Neutrophils # (Auto) 13.59 K/uL (1.4-6.5) Lymphocytes # (Auto) 1.10 K/uL (1.2-3.4) Monocytes # (Auto) 2.51 K/uL (0.11-0.59) Eosinophils # (Auto) 0.01 K/uL (0-0.5) Basophils # (Auto) 0.02 K/uL (0-0.2) RDW Standard Deviation 42.9 fL (36.4-46.3) RDW Coefficient of Variation 13.2 % (11.5-14.5) Immature Granulocyte % (Auto) 2.4 % Immature Granulocyte # (Auto) 0.43 K/uL (0.00-0.02) Anion Gap 6.0 mmol/L (3-11) Est Creatinine Clear Calc Drug Dose 121.0 ml/min Estimated GFR () 96.1 Estimated GFR (Non- 83.0 BUN/Creatinine Ratio 14.4 (10-20) Calcium Level 8.6 mg/dl (8.5-10.1) Total Bilirubin 1.1 mg/dl (0.2-1) Direct Bilirubin 0.3 mg/dl (0-0.2) Aspartate Amino Transf (AST/SGOT) 11 U/L (15-37) Alanine Aminotransferase (ALT/SGPT) 58 U/L (12-78) Alkaline Phosphatase 43 U/L (45-117) Total Protein 6.1 gm/dl (6.4-8.2) Albumin 3.4 gm/dl (3.4-5.0) Lipase 116 U/L (73-393) Laboratory results as stated above per my review. Medications Administered Medications (Trade) Dose Ordered Sig/Andrey Route Start Time Stop Time Status Last Admin Dose Admin Sodium Chloride 1,000 ml @ 999 mls/hr Q1H1M STAT IV 03/19/17 10:43 03/19/17 11:43 DC 03/19/17 11:54 999 MLS/HR Ondansetron HCl (Zofran Inj) 4 mg NOW STAT IV 03/19/17 10:43 03/19/17 10:44 DC 03/19/17 11:54 4 MG Ketorolac Tromethamine (Toradol Inj) 30 mg NOW STAT IV 03/19/17 10:43 03/19/17 10:44 DC 03/19/17 11:54 30 MG ED Course 1036: Previous medical records were reviewed. The patient was evaluated in room B5. A complete history and physical examination was performed. 1043: Toradol Inj 30mg IV, Zofran Inj 4mg IV, Sodium Chloride 1000 ml @ 999 mls/ hr IV 1348: On reevaluation, the patient is feeling better. I discussed the results and findings with the patient. He verbalized agreement of the treatment plan. He was discharged home. Medical Decision Differential considered: pancreatitis, hepatitis, or acute cholecystitis, AAA, UTI, pyelonephritis, kidney stones, appendicitis, diverticulitis, shingles, bowel obstruction mesenteric ischemia, intussusception,hernia, testicular torsion. This is a 26-year-old male who presents to the ED with a chief complaint of lower abdominal pain and low back pain as well as some nausea and vomiting. His symptoms started this morning and he awoke. He states that his pain waxes and wanes. It seems to be slightly more on the left and his back and is in the suprapubic area in the front. He states that the symptoms started around 5 AM. He does report that his symptoms overall seemed improved some since it started. Patient is currently on steroids for MS and over the weekend received IV steroids for his MS. The patient's physical exam is noted above. There is mild lower abdominal tenderness diffusely. Vital signs are normal. White blood count 17.6. This could be explained by the recent steroids for his MS. Complete medical panel was unremarkable, urine did not show obvious infection. There was some blood. Acute abdominal series was negative for acute process. CT scan reveals a 3 mm left ureteral calculus at the UVJ. There is some mild/ moderate [place]. The patient was told the results. He is felt to be stable for discharge. Impression Primary Impression: Renal colic on left side Additional Impression: Kidney stone Scribe Attestation The scribe's documentation has been prepared under my direction and personally reviewed by me in its entirety. I confirm that the note above accurately reflects all work, treatment, procedures, and medical decision making performed by me. Departure Information Dispostion Home / Self-Care Prescriptions Oxycodone/Acetaminophen 5MG/325MG (PERCOCET 5MG/325MG) Tab 1 TAB PO Q6H Y for Pain, #10 TAB Prov: Porfirio Sparks D.O. 03/19/17 Referrals No Doctor, Assigned (PCP) Forms HOME CARE DOCUMENTATION FORM, IMPORTANT VISIT INFORMATION Patient Instructions Kidney Stones Expectant Therapy, My [facility] [employer] Additional Instructions Take ibuprofen 600 mg every 6 hours as needed for pain. Drink plenty of fluids. Percocet as prescribed. No driving within 6 hours of use. Do not take additional Tylenol while taking Percocet. Strain urine for stone. Problem Qualifiers
[2017-03-19 13:58] VITALS: BP 151/90; PULSE 75
== END 2017-03-19 13:58 | disposition home or self-care (01) ==
LOC: C.EDB 10:19
DX: N20.0 Calculus of kidney (principal); G35 Multiple sclerosis; Z79.899 Other long term (current) drug therapy; Z82.49 Family history of ischemic heart disease and other diseases of the circulatory system; Z83.3 Family history of diabetes mellitus

== ENCOUNTER → 2017-11-18 | Outpatient (CLI) | payer BC ==
[~2017-11-18] MED LIST changes: +GADAVIST IV PRN
--- NOTE | 2017-11-18 13:36 | DIAGNOSTIC IMAGING REPORT ---
Brain MRI WITH AND WITHOUT CONTRAST HISTORY: Multiple sclerosis. Follow-up. TECHNIQUE: Multiplanar multisequence MRI of the brain was performed both before and after the intravenous administration of contrast. COMPARISON STUDY: Brain MRI 02/26/2017. FINDINGS: There is no mass, hematoma, midline shift, acute infarct. The midline structures are intact. The ventricles and sulci are within normal limits. The orbits are unremarkable. The mastoid air cells are clear. Small retention cyst within the right maxillary sinus. The age or vascular flow-voids at the skull base are well-maintained. The majority of the scattered white matter plaques remain unchanged in size. The lesions within the right thalamus and nehemias demonstrate diminished T2 signal abnormality compared to the prior study but remain stable in size. Increase in size in the left middle cerebellar peduncle lesion which measures 1 cm, previously measuring 6 mm.. IMPRESSION: 1. Multiple scattered white matter plaques are again noted consistent with the patient's history of multiple sclerosis. No abnormal enhancement to suggest active demyelination. 2. The dominant right thalamic and pontine lesions remain stable in size but demonstrate decreased T2 signal suggestive of improvement. 3. The 1 cm left middle cerebellar pedicle lesion has increased in size. Electronically signed by: Berhane Tang M.D. 11/18/2017 1:34 PM Dictated Date/Time: 11/18/2017 1:25 PM
== END | disposition home or self-care (01) ==
LOC: C.MRIBC 12:32
PROVIDERS: ATTEND Psychiatry & Neurology Neurology
DX: G35 Multiple sclerosis (principal)